=== PATIENT | female | born 1990 | race Caucasian/White ===

== ENCOUNTER 2016-09-07 22:19 | Emergency (ER) | payer OTHER ==
[2016-09-07 22:21] VITALS: BP 132/85; PULSE 87; RESP 16; TEMP 99; O2SAT 97
[2016-09-07] MEDS ORDERED: SERT-129 PO (22:28)
[2016-09-07] MEDS ORDERED: TETANUS/DIPHTHERIA TOXOID ADULT 0.5 ML VIAL IM ONE (22:45)
--- NOTE | 2016-09-07 22:46 | PD ---
HPI Chief Complaint: Laceration/Skin Injury Time Seen by Provider: 22:43 Travel History International Travel<30 days: No Contact w/Intl Traveler<30days: No Traveled to known affect area: No History of Present Illness HPI 26-year-old white female presents to emergency Department with complaints of a left lower leg laceration from a broken glass prior to arrival. She states that they're visiting from [place]. She has not had a tetanus shot over 5 years. Pain is mild. She states that the laceration does squirt blood at times. She denies any other injuries. [facility] Past Medical History Narrative Medical Anxiety Tetanus Vaccination: > 5 Years ?: Not LMP: 1 week Past Surgical History Surgical History: No Previous Surgery Social History Alcohol Use: Yes Tobacco Use: No Allergies-Medications (Allergen,Severity, Reaction): Coded Allergies: Ceclor (Verified Allergy, Severe, Swelling, 09/07/16) Penicillin (Verified Allergy, Severe, Swelling, 09/07/16) Reported Meds & Prescriptions Reported Meds & Active Scripts Active Reported Sertraline (Sertraline HCl) 100 Mg Tab 100 Mg PO DAILY Review of Systems Except as stated in HPI: all other systems reviewed are Neg Physical Exam Narrative GENERAL: This is a well-nourished, well-developed patient, in no apparent distress. SKIN: No rashes, ecchymoses or lesions. Warm and dry. HEAD: Atraumatic. Normocephalic. EYES: PERRL, EOMI, no discharge or injection. No scleral icterus. EARS: Clear NOSE: Nasal turbinates appear normal. THROAT: Mucosa pink and moist. Airway patent. NECK: Trachea midline. supple, moves head freely. LUNGS: Clear to auscultation. CV: Regular in rhythm. ABDOMEN: Soft nontender. EXT: No clubbing cyanosis or edema. Patient has a 2 cm laceration to the left pretibial region. Positive venous bleeding. Neurovascularly intact. No obvious foreign body. Data Data Last Documented VS Vital Signs Date Time Temp Pulse Resp B/P Pulse Ox O2 Delivery O2 Flow Rate FiO2 09/07/16 22:21 99.0 87 16 132/85 97 Room Air Orders Tetanus/Diphtheria Tox Adult (Tetanus/Di (09/07/16 22:45) MDM Medical Decision Making Medical Screen Exam Complete: Yes Emergency Medical Condition: Yes Medical Record Reviewed: Yes Differential Diagnosis MDM: High Differential diagnoses: Fracture, sprain, strain, dislocation, contusion, neurovascular injury Narrative Course Patient's laceration is closed with sutures. Tetanus immunization updated. This is left lower leg laceration Procedures Procedure Narrative LACERATION LOCATION: Left lower leg pretibial region LENGTH: 2 cm NUMBER OF STITCHES/JENN: 4 REPAIR: The area of the laceration was prepped with Betadine and sterilely draped. The laceration was infiltrated with 1% lidocaine and 0.5% Marcaine. The wound was copiously irrigated and explored without evidence of foreign body , tendon injury or neurovascular injury. The wound was closed using 4-0 proline. This was a simple single layer repair. A sterile dressing was applied. The patient was advised to keep the dressing clean and dry. Patient tolerated the procedure well. Diagnosis Primary Impression: Laceration of left lower leg Qualified Code: S81.812A - Laceration of left lower leg, initial encounter Patient Instructions: General Instructions Additional Instructions: Rest. Elevation. Tylenol and Advil for pain. Daily wound care with soap, water, Neosporin. Sutures out in 10-12 days. Return to the ER if any problems. Med/Other Pt SpecificInfo: Wound Care Disposition: 01 DISCHARGE HOME Condition: Stable Giacomo Gibbons September 07, 2016 22:46
== END 2016-09-07 23:30 | disposition home or self-care (01) ==
LOC: NEPK 22:19
DX: S81.812A Laceration without foreign body, left lower leg, initial encounter (principal); W25.XXXA Contact with sharp glass, initial encounter; Z23 Encounter for immunization
CPT/HCPCS: 12001; 90471; 90714